=== PATIENT | male | born 1980 | race African-American/Black ===

== ENCOUNTER 2023-06-29 08:08 | Observation (INO) | payer SELFPAY ==
[2023-06-29] MEDS ORDERED: Ipratropium/Albuterol 3 ML NEB ONE ×2 (08:57→09:05)
[2023-06-29] MEDS ORDERED: Ondansetron ODT 4 MG TAB PO PRN (09:03)
[2023-06-29] MEDS ORDERED: Ondansetron PF 4 MG/2 ML Vial IVP PRN (09:03)
[2023-06-29] MEDS ORDERED: Acetaminophen 325 MG TAB PO PRN (09:03)
[2023-06-29] MEDS: Ipratropium/Albuterol 3 ML NEB NEB SCH ×3 (11:30→15:00)
[2023-06-29 11:38] VITALS: BMI 27.3
[2023-06-29] MEDS: Ketorolac Tromethamine 30 MG/ML VIAL IVP PRN ×2 (12:39→17:50)
[2023-06-29] MEDS: methylPREDNISolone Sod Succ 40 MG VIAL IVP SCH ×3 (12:39→20:19)
[2023-06-29] MEDS: ALPRAZolam 1 MG TAB PO PRN (12:39)
[2023-06-29] MEDS: Nicotine 14 MG PATCH TD SCH (12:40)
[2023-06-29] MEDS: Sodium Chloride 0.9% 1,000 ML IV SCH (15:14)
[2023-06-29] MEDS ORDERED: Lorazepam 2 MG/ML VIAL IM PRN (16:50)
[2023-06-29] MEDS ORDERED: Electrolyte Replacement Protocol 1 EACH FS SCH (17:00)
[2023-06-29] MEDS: Lorazepam 1 MG TAB PO PRN ×2 (17:54→20:36)
[2023-06-29] MEDS ORDERED: Folic Acid 1 MG TAB PO SCH (18:00)
[2023-06-29] MEDS ORDERED: Multivit, Therapeutic 1 TAB PO SCH (18:00)
[2023-06-29] MEDS ORDERED: Thiamine HCl 200 MG/2 ML VIAL SLOW IVP SCH (18:00)
[2023-06-29] MEDS: Ipratropium/Albuterol 3 ML NEB IPPB SCH (20:01)
[2023-06-29] MEDS ORDERED: Ketorolac Tromethamine 30 MG/ML VIAL IVP SCH (21:15)
[2023-06-30] MEDS: Lorazepam 1 MG TAB PO PRN ×3 (00:14→16:57)
[2023-06-30] MEDS: methylPREDNISolone Sod Succ 40 MG VIAL IVP SCH ×3 (00:14→08:38)
[2023-06-30] MEDS: Ipratropium/Albuterol 3 ML NEB IPPB SCH ×3 (00:15→12:15)
[2023-06-30] MEDS: ALPRAZolam 1 MG TAB PO PRN ×2 (01:25→05:00)
[2023-06-30] MEDS ORDERED: Magnesium 2 GM/50 ML(in water) 2 GM in Premix Bag 1 BAG IVPB SCH (05:15)
[2023-06-30] MEDS ORDERED: methylPREDNISolone Sod Succ 40 MG VIAL IVP SCH ×2 (05:15→14:00)
[2023-06-30] MEDS: Sodium Chloride 0.9% 1,000 ML IV SCH ×2 (06:04→13:26)
[2023-06-30 06:24] LABS: Actual Bicarbonate (HCO3v) 23.4 mEq/L (22-28); Base Excess -1.1 mEq/L (-2 - +2); Calcium, Ionized (venous) 1.15 mmol/L (1.16-1.32); Chloride (VBG) 105 mmol/L (98-106); Hematocrit-VBG 40 % (42.0-52.0); Hemoglobin (Hb) 13.6 g/dL (13.2-17.3); Potassium (VBG) 4.21 mmol/L (3.70-5.30); Puncture Site Other Site; RapidComm Collect By LAB; Sodium 137.2 mmol/L (133-146); pH (venous) 7.403 (7.32-7.43)
[2023-06-30] MEDS ORDERED: Budesonide 0.5 MG/2 ML NEB NEB SCH (06:30)
[2023-06-30] MEDS ORDERED: Multivit, Therapeutic 1 TAB PO SCH (09:00)
[2023-06-30] MEDS ORDERED: Folic Acid 1 MG TAB PO SCH (09:00)
[2023-06-30 09:59] LABS: Anion Gap 15 mmol/L (10-20); BUN (Urea Nitrogen) 14 mg/dL (8.9-20.6); Calc. Creatinine Clearance 136 mL/min (70-130); Calcium 8.9 mg/dL (7.8-10.44); Carbon Dioxide 22 mmol/L (22-29); Chloride 107 mmol/L (98-107); Estimated GFR 99; Glucose 212 mg/dL (70-105); Potassium 4.1 mmol/L (3.5-5.1); Sodium 140 mmol/L (136-145)
[2023-06-30 10:04] LABS: #Monocytes 0.4 10x3/uL (0.0-1.1); #Neutrophils 19.8 10x3/uL (1.5-8.4); %Basophils 0.1 % (0.0-2.0); %Monocytes 1.7 % (0.0-10.0); %Neutrophils 93.6 % (40.0-75.0); Hematocrit 37.5 % (38.8-50.0); Hemoglobin 12.7 g/dL (13.5-17.5); Mean Corpuscular HGB CONC 33.9 g/dL (32.0-36.0); Mean Corpuscular Hemoglobin 29.5 pg (27.0-33.0); Mean Corpuscular Volume 87.2 fl (81.2-95.1); Mean Platelet Volume 11.7 fl (7.4-10.4); Platelet Count 174 10x3/uL (150-450); RBC Distribution Width 13.9 % (11.5-14.5); White Blood Cell (WBC) Count 21.2 10x3/uL (3.5-10.5)
[2023-06-30] MEDS ORDERED: Ketorolac Tromethamine 30 MG/ML VIAL IVP PRN (11:53)
[2023-06-30 12:05] VITALS: TEMP 98
[2023-06-30] MEDS: Nicotine 14 MG PATCH TD SCH (12:14)
[2023-06-30] MEDS ORDERED: Lorazepam 1 MG TAB PO PRN (16:50)
[2023-06-30 16:57] VITALS: BP 131/75
[2023-07-01] MEDS ORDERED: Lorazepam 1 MG TAB PO PRN (16:50)
[2023-07-02] MEDS ORDERED: Lorazepam 0.5 MG TAB PO PRN (16:50)
[2023-07-02] MEDS ORDERED: Thiamine 100 MG TAB PO SCH (18:00)
== END 2023-06-30 18:04 | disposition left against medical advice (07) ==
LOC: SUATTDRO 08:08 → CSHERS 08:08 → CSHTELE 09:59 → CSHICU 06-30 17:38
PROVIDERS: ADMIT Internal Medicine; ATTEND Hospitalist
DX: R07.9 Chest pain, unspecified (principal); J45.901 Unspecified asthma with (acute) exacerbation; F17.210 Nicotine dependence, cigarettes, uncomplicated; F41.1 Generalized anxiety disorder; Z79.899 Other long term (current) drug therapy
CPT/HCPCS: 36415; 70450; 71045; 80048; 82805; 84484; 85025; 93005; 93010; 94640; 94660; 94760; 96374; 96375; 96376; 99285; G0378; J1885; J2920; J3411; J3475; J7050; J7611; J7620; J7626

== ENCOUNTER 2023-06-30 18:38 | Inpatient (IN) | payer SELFPAY ==
[2023-06-30] MEDS ORDERED: Magnesium 2 GM/50 ML BAG (IN WATER) ONE (19:36)
[2023-06-30] MEDS ORDERED: Ipratropium/Albuterol 3 ML NEB ONE (19:37)
[2023-06-30] MEDS ORDERED: Senokot S 8.6-50 MG TAB PO PRN (20:08)
[2023-06-30] MEDS ORDERED: Guaifenesin DM 100-10/5 ML UDCUP PO PRN (20:08)
[2023-06-30] MEDS ORDERED: Acetaminophen 325 MG TAB PO PRN (20:08)
[2023-06-30] MEDS ORDERED: Calcium Carbonate 500 MG ChewTAB PO PRN (20:08)
[2023-06-30] MEDS ORDERED: Ondansetron PF 4 MG/2 ML Vial IVP PRN (20:08)
[2023-06-30] MEDS ORDERED: Ketorolac Tromethamine 30 MG/ML VIAL IVP SCH (20:15)
[2023-06-30] MEDS: Lorazepam 1 MG TAB PO SCH ×2 (22:03→22:24)
[2023-06-30] MEDS: methylPREDNISolone Sod Succ 40 MG VIAL IVP SCH (22:23)
[2023-06-30] MEDS: traZODone HCl 50 MG TAB PO SCH (22:24)
[2023-06-30] MEDS: Zolpidem Tartrate 5 MG TAB PO PRN (22:24)
[2023-06-30] MEDS: Ipratropium/Albuterol 3 ML NEB NEB PRN (22:30)
[2023-06-30] MEDS: Nicotine 21 MG PATCH TD SCH (22:31)
[2023-06-30 22:43] LABS: Anion Gap 16 mmol/L (10-20); BUN (Urea Nitrogen) 17 mg/dL (8.9-20.6); Calc. Creatinine Clearance 0 mL/min (70-130); Calcium 8.8 mg/dL (7.8-10.44); Carbon Dioxide 22 mmol/L (22-29); Chloride 106 mmol/L (98-107); Estimated GFR 92; Glucose 227 mg/dL (70-105); Potassium 4.5 mmol/L (3.5-5.1); Sodium 139 mmol/L (136-145)
[2023-06-30] MEDS ORDERED: ALPRAZolam 1 MG TAB PO SCH (23:00)
[2023-07-01] MEDS: Ipratropium/Albuterol 3 ML NEB NEB SCH ×4 (01:00→17:45)
[2023-07-01 01:52] VITALS: BMI 22.4
[2023-07-01 04:52] LABS: SARS-CoV-2 NAA Rapid Test Not Detected (NotDetected)
[2023-07-01 07:57] LABS: Bilirubin Neg (Negative); Blood, Urine Negative (Negative); Clarity Clear (Clear); Glucose, Urine (Dipstick) 250 mg/dL (Negative); Ketone, Urine Negative (Negative); Leukocyte Negative (Negative); Nitrite Negative (Negative); Protein, Urine (Dipstick) Negative (Neg-Trace); Urobilinogen Normal mg/dL (Less than 2)
[2023-07-01 08:06] LABS: Amphetamine Not Detected (NotDetected); Barbiturates Screen Not Detected (NotDetected); Benzodiazepine Screen Detected (NotDetected); Cocaine Metabolite Screen Not Detected (NotDetected); Methadone Not Detected (NotDetected); Methamphetamine Not Detected (NotDetected); Opiate Screen Not Detected (NotDetected); Oxycodone Screen Not Detected (NotDetected); Phencyclidine (PCP) Not Detected (NotDetected); THC/Cannabinoid Screen Not Detected (NotDetected); Tricyclic Screen Not Detected (NotDetected)
[2023-07-01 08:07] LABS: Bacteria/HPF None Seen HPF (None Seen); RBC/HPF None Seen HPF (0-3); Squamous Epithelial 0-3 HPF (0-3); WBC/HPF 0-3 HPF (0-3)
[2023-07-01 09:11] LABS: #Monocytes 0.9 10x3/uL (0.0-1.1); #Neutrophils 21.6 10x3/uL (1.5-8.4); %Basophils 0.1 % (0.0-2.0); %Lymphocytes 3.9 % (18.0-47.0); %Monocytes 3.7 % (0.0-10.0); %Neutrophils 91.5 % (40.0-75.0); Hematocrit 39.5 % (38.8-50.0); Hemoglobin 13.1 g/dL (13.5-17.5); Mean Corpuscular HGB CONC 33.2 g/dL (32.0-36.0); Mean Corpuscular Hemoglobin 29.3 pg (27.0-33.0); Mean Corpuscular Volume 88.4 fl (81.2-95.1); Mean Platelet Volume 11.6 fl (7.4-10.4); Platelet Count 182 10x3/uL (150-450); RBC Distribution Width 14.5 % (11.5-14.5); Red Blood Cell (RBC) Count 4.47 10x6/uL (4.32-5.72); White Blood Cell (WBC) Count 23.6 10x3/uL (3.5-10.5)
[2023-07-01 09:25] LABS: Anion Gap 13 mmol/L (10-20); BUN (Urea Nitrogen) 15 mg/dL (8.9-20.6); Calc. Creatinine Clearance 121 mL/min (70-130); Calcium 9.3 mg/dL (7.8-10.44); Carbon Dioxide 26 mmol/L (22-29); Chloride 106 mmol/L (98-107); Estimated GFR 109; Glucose 146 mg/dL (70-105); Potassium 4.2 mmol/L (3.5-5.1); Sodium 141 mmol/L (136-145)
[2023-07-01] MEDS: ALPRAZolam 1 MG TAB PO SCH ×2 (10:15→21:38)
[2023-07-01] MEDS: methylPREDNISolone Sod Succ 40 MG VIAL IVP SCH ×2 (10:15→21:38)
[2023-07-01] MEDS: Amlodipine 5 MG TAB PO SCH (10:18)
[2023-07-01] MEDS: Mometasone/Formoterol 200/5 60 PUFF INH SCH ×2 (10:45→17:50)
[2023-07-01] MEDS: traZODone HCl 50 MG TAB PO SCH (21:37)
[2023-07-01] MEDS: Nicotine 21 MG PATCH TD SCH (21:38)
[2023-07-01] MEDS: Zolpidem Tartrate 5 MG TAB PO PRN (21:52)
[2023-07-01] MEDS: Ipratropium/Albuterol 3 ML NEB NEB PRN (22:00)
[2023-07-01] MEDS: Ketorolac Tromethamine 10 MG TAB PO PRN (22:58)
[2023-07-02] MEDS: Ipratropium/Albuterol 3 ML NEB NEB SCH ×3 (01:45→22:40)
[2023-07-02] MEDS: Mometasone/Formoterol 200/5 60 PUFF INH SCH ×2 (06:35→19:00)
[2023-07-02] MEDS: Ipratropium/Albuterol 3 ML NEB NEB PRN (07:30)
[2023-07-02 08:04] LABS: #Monocytes 0.7 10x3/uL (0.0-1.1); %Basophils 0.1 % (0.0-2.0); %Lymphocytes 7.6 % (18.0-47.0); %Monocytes 3.9 % (0.0-10.0); %Neutrophils 87.9 % (40.0-75.0); Hematocrit 39.4 % (38.8-50.0); Mean Corpuscular Hemoglobin 29.2 pg (27.0-33.0); Mean Corpuscular Volume 88.5 fl (81.2-95.1); Mean Platelet Volume 11.5 fl (7.4-10.4); Platelet Count 179 10x3/uL (150-450); RBC Distribution Width 14.4 % (11.5-14.5); Red Blood Cell (RBC) Count 4.45 10x6/uL (4.32-5.72)
[2023-07-02 08:21] LABS: Anion Gap 15 mmol/L (10-20); BUN (Urea Nitrogen) 16 mg/dL (8.9-20.6); Calc. Creatinine Clearance 101 mL/min (70-130); Calcium 8.9 mg/dL (7.8-10.44); Carbon Dioxide 25 mmol/L (22-29); Chloride 103 mmol/L (98-107); Estimated GFR 88; Glucose 242 mg/dL (70-105); Potassium 4.1 mmol/L (3.5-5.1); Sodium 139 mmol/L (136-145)
[2023-07-02] MEDS: ALPRAZolam 1 MG TAB PO SCH ×2 (12:04→20:32)
[2023-07-02] MEDS: Folic Acid 1 MG TAB PO SCH (12:04)
[2023-07-02] MEDS: Thiamine 100 MG TAB PO SCH (12:05)
[2023-07-02] MEDS: Amlodipine 5 MG TAB PO SCH (12:05)
[2023-07-02] MEDS: Multivit, Therapeutic 1 TAB PO SCH (12:05)
[2023-07-02] MEDS: methylPREDNISolone Sod Succ 40 MG VIAL IVP SCH (12:06)
[2023-07-02] MEDS: Ketorolac Tromethamine 10 MG TAB PO PRN ×2 (12:17→21:51)
[2023-07-02] MEDS: Lorazepam 2 MG/ML VIAL SLOW IVP PRN ×2 (15:07→21:51)
[2023-07-02] MEDS ORDERED: Sodium Chloride 0.9% 1,000 ML IV SCH (15:30)
[2023-07-02] MEDS: traZODone HCl 50 MG TAB PO SCH (20:32)
[2023-07-02] MEDS: Nicotine 21 MG PATCH TD SCH (20:32)
[2023-07-02] MEDS ORDERED: Calamine/Zinc Oxide 177 ML LOTION TP PRN (22:33)
[2023-07-03] MEDS: Ipratropium/Albuterol 3 ML NEB NEB PRN (05:10)
[2023-07-03] MEDS: Mometasone/Formoterol 200/5 60 PUFF INH SCH (06:30)
[2023-07-03] MEDS: Ipratropium/Albuterol 3 ML NEB NEB SCH (07:35)
[2023-07-03] MEDS ORDERED: methylPREDNISolone Sod Succ 40 MG VIAL IVP SCH ×3 (09:00→21:00)
[2023-07-03 09:22] VITALS: BP 155/90; TEMP 97.8
[2023-07-03] MEDS ORDERED: diphenhydrAMINE 25 MG CAP PO PRN (10:14)
[2023-07-03] MEDS: Amlodipine 5 MG TAB PO SCH (10:18)
[2023-07-03] MEDS: Multivit, Therapeutic 1 TAB PO SCH (10:18)
[2023-07-03] MEDS: ALPRAZolam 1 MG TAB PO SCH (10:18)
[2023-07-03] MEDS: Folic Acid 1 MG TAB PO SCH (10:19)
[2023-07-03] MEDS: Thiamine 100 MG TAB PO SCH (10:19)
[2023-07-03] MEDS: Ketorolac Tromethamine 10 MG TAB PO PRN (10:20)
[2023-07-03] MEDS ORDERED: Doxycycline 100 MG CAP PO SCH ×2 (11:00→21:00)
[2023-07-03] MEDS ORDERED: Ipratropium/Albuterol 3 ML NEB NEB SCH (13:00)
[2023-07-03] MEDS ORDERED: Triple Antibiotic Oint 1 GM Packet TOP SCH (15:00)
== END 2023-07-03 14:42 | disposition home or self-care (01) | DRG 202 ==
LOC: CSHERS 18:38 → CSHTELE 21:25
PROVIDERS: ADMIT Student in an Organized Health Care Education/Training Program; ATTEND Internal Medicine
PROC: 5A09457 Assistance with Respiratory Ventilation, 24-96 Consecutive Hours, Continuous Positive Airway Pressure (ICD-10-PCS; principal; 2023-06-30)
DX: J45.41 Moderate persistent asthma with (acute) exacerbation (principal); R65.10 Systemic inflammatory response syndrome (SIRS) of non-infectious origin without acute organ dysfunction; G47.30 Sleep apnea, unspecified; F17.210 Nicotine dependence, cigarettes, uncomplicated; F41.9 Anxiety disorder, unspecified; F32.A Depression, unspecified; F41.1 Generalized anxiety disorder; G89.29 Other chronic pain; D72.829 Elevated white blood cell count, unspecified; D64.9 Anemia, unspecified; Z20.822 Contact with and (suspected) exposure to COVID-19; R73.9 Hyperglycemia, unspecified; Z91.148 Patient's other noncompliance with medication regimen for other reason; Z71.6 Tobacco abuse counseling; Z79.51 Long term (current) use of inhaled steroids; Z79.899 Other long term (current) drug therapy
CPT/HCPCS: 36415; 71045; 80048; 80306; 81001; 83036; 85025; 94640; 94660; 94664; 94760; J1650; J1885; J2060; J2920; J3475; J7050; J7611; J7620

== ENCOUNTER 2023-07-06 10:55 | Emergency (ER) | payer SELFPAY | END 2023-07-06 11:45 | disposition home or self-care (01) | LOC: CSHERS 10:55 | DX: R06.2 Wheezing (principal); I10 Essential (primary) hypertension; Z87.891 Personal history of nicotine dependence | CPT/HCPCS: 99284 ==